=== PATIENT | male | born 1985 | race Caucasian/White ===

== ENCOUNTER 2018-03-04 11:27 | Emergency (ER) | payer SELFPAY ==
[~2018-03-04] VITALS: Ht 180.3 cm; Wt 93.2 kg
[2018-03-04 11:34] VITALS: BP 126/78; PULSE 66; RESP 17; TEMP 97.9; O2SAT 95
--- NOTE | 2018-03-04 11:54 | PD ---
HPI Chief Complaint: Musculoskeletal Complaint Time Seen by Provider: 11:50 Travel History International Travel<30 days: No Contact w/Intl Traveler<30days: No Traveled to known affect area: No History of Present Illness HPI 32-year-old male with no significant medical history presents emergency department for evaluation of right shoulder pain. Patient states that he was continuing yesterday and woke up this morning with right shoulder pain. Denies any new injury. States the pain radiates into his arm at times. Denies any limitations range of motion. States pain is more in the posterior aspect of his right shoulder. Pain is described as a tightness, ache. It is constant. He denies any fever chills. He denies any other symptoms at this time. [facility] Past Medical History Medical History: Denies Significant Hx Social History Alcohol Use: No Tobacco Use: No Substance Use: No Allergies-Medications (Allergen,Severity, Reaction): Coded Allergies: No Known Allergies (Unverified , 03/04/18) Reported Meds & Prescriptions Reported Meds & Active Scripts Active No Active Prescriptions or Reported Medications Review of Systems Except as stated in HPI: all other systems reviewed are Neg Physical Exam Narrative GENERAL: Well-nourished, well-developed male patient in no acute distress SKIN: Focused skin assessment warm/dry. HEAD: Normocephalic. EYES: No scleral icterus. No injection or drainage. NECK: Supple, trachea midline. No JVD or lymphadenopathy. No cervical spine tenderness. CARDIOVASCULAR: Regular rate and rhythm without murmurs, gallops, or rubs. RESPIRATORY: Breath sounds equal bilaterally. No accessory muscle use. GASTROINTESTINAL: Abdomen soft, non-tender, nondistended. MUSCULOSKELETAL: No cyanosis, or edema. Patient has full range of motion of the right shoulder both passive and active range of motion. No crepitus. No deformity. Tenderness elicited palpation inferior to the right scapula. No erythema or edema. Distal pulses are palpable. BACK: Nontender without obvious deformity. No CVA tenderness. Data Data Last Documented VS Vital Signs Date Time Temp Pulse Resp B/P (MAP) Pulse Ox O2 Delivery O2 Flow Rate FiO2 03/04/18 11:34 97.9 66 17 126/78 (94) 95 Orders Orders Ketorolac Inj (Toradol Inj) (03/04/18 12:00) Orphenadrine Inj (Norflex Inj) (03/04/18 12:00) Ed Discharge Order (03/04/18 12:45) [facility] Medical Decision Making Medical Screen Exam Complete: Yes Emergency Medical Condition: Yes Medical Record Reviewed: Yes Differential Diagnosis Musculoskeletal pain versus strain versus sprain versus discogenic pain versus radiculopathy Narrative Course 32-year-old male presents emergency department for evaluation right shoulder pain. Physical exam is reassuring. Pain is likely secondary to overuse injury from continuing yesterday. Patient is given pain control here. He is counseled on care and encouraged follow-up with primary care provider. He agrees to return immediately with acute worsening symptoms. Diagnosis Primary Impression: Shoulder pain, acute Qualified Codes: M25.511 - Pain in right shoulder Referrals: Primary Care Physician Patient Instructions: General Instructions, Shoulder Pain (GEN) Additional Instructions: Ice and/or warm moist heat may help to alleviate symptoms Follow-up the primary care provider Return immediately with acute worsening symptoms Med/Other Pt SpecificInfo: Prescription(s) given Scripts Ibuprofen (Ibuprofen) 600 Mg Tab 600 MG PO Q8HR Y for PAIN, #30 TAB 0 Refills Prov: Rosaura Moses 03/04/18 Disposition: 01 DISCHARGE HOME Condition: Stable Rosaura Moses Mar 04, 2018 11:54
[2018-03-04] MEDS ORDERED: ORPHENADRINE INJ 60 MG/2 ML AMP IM ONE (12:00)
[2018-03-04] MEDS ORDERED: KETOROLAC TROMETHAMINE 60 MG/2 ML (IM) VIAL IM ONE (12:00)
[2018-03-04] MEDS ORDERED: IBUP-232 PO (12:49)
== END 2018-03-04 13:26 | disposition home or self-care (01) ==
LOC: PHEFT 11:27
DX: M25.511 Pain in right shoulder (principal)
CPT/HCPCS: 96372; 99283; J1885; J2360